=== PATIENT | male | born 1960 | race African-American/Black ===

== ENCOUNTER 2024-01-18 08:17 | Day surgery (SDC) | payer MEDICARE ==
[~2024-01-18] VITALS: Ht 185.4 cm; Wt 80.3 kg
[~2024-01-18 08:17] MED LIST: BEANO300 UNIT; EYE DROP3 OP; INHALER; PROBIOTI2 PO; TAMSULOSIN0.4 MG PO; VENTOLIN HFA108 MCG IN
[2024-01-18] MEDS ORDERED: LACTATED RINGER'S 1,000 ML IV ONE (08:28)
[2024-01-18] MEDS ORDERED: FAMOTIDINE 10MG/ML 2ML SDV IV ONE (08:28)
[2024-01-18 11:06] VITALS: BP 126/90
[2024-01-18] MEDS ORDERED: LIDOCAINE HCL 2% 2ML SDV IV ONE (15:41)
[2024-01-18] MEDS ORDERED: GLYCOPYRROLATE 0.2 MG/ML IV ONE (15:41)
[2024-01-18] MEDS ORDERED: PROPOFOL 200 MG/20 ML VIAL IV ONE (15:41)
== END 2024-01-18 10:55 | disposition home or self-care (01) ==
LOC: ENDO 08:17 → ORM 10:15 → ENDO 10:15 → ORM 11:30
PROVIDERS: ATTEND Surgery
PROC: 0DB98ZX Excision of Duodenum, Via Natural or Artificial Opening Endoscopic, Diagnostic (ICD-10-PCS; principal; 2024-01-18)
PROC: 0DB78ZX Excision of Stomach, Pylorus, Via Natural or Artificial Opening Endoscopic, Diagnostic (ICD-10-PCS; 2024-01-18)
PROC: 0DB58ZX Excision of Esophagus, Via Natural or Artificial Opening Endoscopic, Diagnostic (ICD-10-PCS; 2024-01-18)
PROC: 0DB48ZX Excision of Esophagogastric Junction, Via Natural or Artificial Opening Endoscopic, Diagnostic (ICD-10-PCS; 2024-01-18)
DX: D13.0 Benign neoplasm of esophagus (principal); K21.9 Gastro-esophageal reflux disease without esophagitis; K44.9 Diaphragmatic hernia without obstruction or gangrene; K29.70 Gastritis, unspecified, without bleeding; K31.7 Polyp of stomach and duodenum; J44.9 Chronic obstructive pulmonary disease, unspecified; F17.200 Nicotine dependence, unspecified, uncomplicated